=== PATIENT | male | born 1985 | race African-American/Black ===

== ENCOUNTER 2017-01-30 21:32 | Emergency (ER) | payer BC ==
[~2017-01-30] VITALS: Ht 175.3 cm; Wt 75.0 kg
[~2017-01-30 21:32] MED LIST: CEPHALEXIN500 M1 PO
[2017-01-30 21:33] VITALS: BP 135/88; PULSE 94; TEMP 98.6
== END 2017-01-30 23:25 | disposition home or self-care (01) ==
LOC: COL.ER 21:32
DX: F10.129 Alcohol abuse with intoxication, unspecified (principal); Y90.8 Blood alcohol level of 240 mg/100 ml or more; S11.91XA Laceration without foreign body of unspecified part of neck, initial encounter; Y09 Assault by unspecified means; S09.90XA Unspecified injury of head, initial encounter